=== PATIENT | female | born 1935 ===

== ENCOUNTER 2021-02-01 06:00 | Day surgery (SDC) | payer OTHER | END 2021-02-01 13:00 | disposition home or self-care (01) | LOC: AMB-ENDOS 06:00 | PROVIDERS: ATTEND Surgery | DX: C18.2 Malignant neoplasm of ascending colon (principal); D12.5 Benign neoplasm of sigmoid colon; K64.8 Other hemorrhoids; Z20.822 Contact with and (suspected) exposure to COVID-19 ==